=== PATIENT | female | born 1960 | race Caucasian/White ===

== ENCOUNTER 2016-09-04 14:25 | Emergency (ER) | payer MEDICARE, MEDICAID ==
[~2016-09-04 14:25] MED LIST: ALBUTEROL17 GM INH; ARICEPT10 MG; BIAXIN XL500 MG PO; CYMBALTA60 MG; DARVOCET-N 1001 TAB; HYDROCODONE/APA1 TA; LEVAQUIN750 MG; MIRAPEX0.125 MG; NORFLEX100 MG PO; OXYCODONE-APAP1 CA; SYMBICORT 16010.2 GM; TRAMADOL HCL50 MG; TREXIMET 85-5001 TAB; XANAX0.5 MG; [UNRECOGNIZED DRUG - OTHER]
[2016-09-04] MEDS ORDERED: VENTOLIN HFA18 G2 PO (15:49)
[2016-09-04] MEDS ORDERED: NORCO 10-325 T1 EACH PO (15:49)
[2016-09-04] MEDS ORDERED: DESVENLAFAXINE50 MG PO (15:49)
[2016-09-04] MEDS ORDERED: XYZAL5 M1 PO (15:50)
[2016-09-04] MEDS ORDERED: MORPHINE SU15 MG/TAB PO ×2 (15:50)
[2016-09-04] MEDS ORDERED: ZOFRAN4 M2 PO (15:51)
[2016-09-04 16:28] LABS: PROTHROMBIN TIME 11.5 SECONDS (9.0-13.6)
[2016-09-04 16:35] LABS: ANION GAP 8 mmol/L (0-20); BLOOD UREA NITROGEN 9 mg/dl (6-24); CALCIUM 9.1 mg/dl (8.5-10.5); CARBON DIOXIDE-VENOUS 31 mmol/L (22-32); CHLORIDE 105 mmol/l (96-110); CREATININE 0.81 mg/dl (0.50-1.10); GLUCOSE 102 mg/dL (70-110); SODIUM 140 mmol/L (135-145); eGFR VALUE FOR BLACK >90 mL/Min
== END 2016-09-04 17:07 ==
LOC: EDMED 14:25
PROVIDERS: Physician Assistant
DX: M79.662 Pain in left lower leg (principal); J45.909 Unspecified asthma, uncomplicated; Z98.890 Other specified postprocedural states; Z90.710 Acquired absence of both cervix and uterus; Z87.891 Personal history of nicotine dependence; Z79.51 Long term (current) use of inhaled steroids; Z79.899 Other long term (current) drug therapy